=== PATIENT | female | born 1935 | race Caucasian/White ===

== ENCOUNTER 2019-01-28 19:27 | Emergency (ER) | payer MEDICARE, BC ==
[2019-01-28] MEDS ORDERED: Sodium Chloride 0.9% 2.5 ML Syringe FLUSH PRN (19:43)
[2019-01-28] MEDS ORDERED: Sodium Chloride 0.9% 10 ML Syringe FLUSH PRN (19:43)
--- NOTE | 2019-01-28 19:45 | EDM.PDOC ---
ED HPI GENERAL MEDICAL PROBLEM - General Chief Complaint: Cardiovascular Problem Stated Complaint: HIGH BP Time Seen by Provider: 01/28/19 19:35 - History of Present Illness INITIAL COMMENTS - FREE TEXT/NARRATIVE: HISTORY AND PHYSICAL: History of present illness: The patient is an 83-year-old female with a history of hypertension and hypothyroidism and hypercholesterolemia who follows with Dr. West at [facility] and presents with a 24-hour history of feeling lightheaded or dizzy and elevated blood pressure. She says she takes her blood pressure every evening and usually a number that is good for her is 120 to 130/80-90. A few months ago she was taken off the metoprolol she had been taking for a while and was placed on amlodipine and says she has been doing well with that. She has been struggling with left sciatica for the last 6 or so weeks and that is not new or different today so she has been doing activities more slowly than usual because of that. She says that she did not have a good day yesterday with her sciatica but she had no other symptomatology and today she said that she felt very woozy and not quite in her head and lightheaded but she did not pass out or black out and has no head neck or back pain that is new or different no chest pain or shortness of breath no nausea vomiting or abdominal complaints no fevers or chills or upper respiratory symptoms. She was concerned that her blood pressure was elevated which is why she was having the symptoms and took her blood pressure home and it was 160/105. She tells me that she ran out of her blood pressure medication yesterday so she has not had at least 2 doses of it and she is concerned that that is triggering this as well. She was concerned and came here for evaluation. As a says she is having no systemic complaints whatsoever and is eating and drinking normally. The discomfort and sciatica she is having on the left side is not new or different today. She is having normal urine output and no bowel or bladder disturbances. She's had no trauma. Please note that there was some confusion regarding this patient's medications for blood pressure. She gets them from mail order and the [facility] told me that she is on lisinopril 20 mg and she got a prescription for this just last month in December. He does not have any record of her taking the amlodipine or the metoprolol recently. The patient had showed me a list but did not have lisinopril on it but now tells me that she was started on this last month and she is awaiting a mail order of the medication and did run out of it. She also tells me now that she is not taking the amlodipine although her med list she showed me did show it on there. She says that she was taken off of that and now only takes the lisinopril 20 mg every night Review of systems: As per history of present illness and below otherwise all systems reviewed and negative. Past medical history: As per history of present illness and as reviewed below otherwise noncontributory. Surgical history: As per history of present illness and as reviewed below otherwise noncontributory. Social history: No reported history of drug or alcohol abuse. Family history: As per history of present illness and as reviewed below otherwise noncontributory. Physical exam: General: Well-developed well-nourished female who is nontoxic and speaking clearly and easily in the ED. She is interactive and vital signs are noted by me HEENT: Atraumatic, normocephalic, pupils reactive, negative for conjunctival pallor or scleral icterus, mucous membranes moist, throat clear, neck supple, nontender, trachea midline. Lungs: Clear to auscultation, breath sounds equal bilaterally, chest nontender. Heart: S1S2, regular rate and rhythm no overt murmurs Abdomen: Soft, nondistended, nontender. Negative for masses or hepatosplenomegaly. Negative for costovertebral tenderness. Pelvis: Stable nontender. Genitourinary: Deferred. Rectal: Deferred. Extremities: Atraumatic, negative for cords or calf pain. Neurovascular unremarkable. No pedal edema or leg asymmetry Neuro: Awake, alert, oriented. Cranial nerves II through XII unremarkable. Cerebellum unremarkable. Motor and sensory unremarkable throughout but the patient does have discomfort and difficulty raising her left leg due to her sciatic pain which she said is not new.. Exam nonfocal. Diagnostics: EKG CBC CMP INR troponin UA with reflex chest x-ray CT scan of the head Therapeutics: IV O2 monitor, potassium by mouth, lisinopril 20 mg Blood pressure is 167/87 without any intervention and I am currently awaiting the testing results. Potassium is low at 2.6 so I will give some oral potassium here in the ED. With trying to swallow the potassium pill, which is quite large, the patient did have an episode in the ED workup stuck in the back of her throat secondary to the size of the pill and the dryness of her mouth. She was coughing and speaking and she was assisted by nursing and me and was able to mobilize it and re-swallow it. There were no complications and the patient is doing well. I will give her the second 20 mEq in liquid form I discussed testing results with the patient and family at bedside and as she is awaiting a mail order of the lisinopril I will give her a dose here in the emergency department and a prescription for 5 tablets in case there is a delay getting these meds. I will also write for some potassium elixir that she can take tomorrow and I have advised her on dietary changes. She says she feels comfortable with discharge home. I confirmed the lisinopril dosing with [facility] and the patient also confirms that in the room. Repeat blood pressure is now 157/83 Impression: Elevated blood pressure, off medication, lightheadedness resolved stable Mild hypokalemia Definitive disposition and diagnosis as appropriate pending reevaluation and review of above. - Related Data Allergies Allergy/AdvReac Type Severity Reaction Status Date / Time No Known Allergies Allergy Verified 01/28/19 19:31 Home Meds: Home Meds Ascorbic Acid/Multivit-Min [Emergen-C 1,000 mg Packet] 1,000 mg PO 01/28/19 [ History] Aspirin 81 mg PO DAILY 01/28/19 [History] B12/Levomefolate Calcium/B-6 [Folbic Rf Tablet] 1 each PO 01/28/19 [History] D3/Folic Acid/Collagen,Hydroly [Cyfolex Capsule] 1 each PO 01/28/19 [History] FLUoxetine [PROzac] 10 mg PO DAILY 01/28/19 [History] Lisinopril [Prinivil] 20 mg PO DAILY 01/28/19 [History] Lovastatin 01/28/19 [History] Lutein 6 mg PO ASDIRECTED 01/28/19 [History] Magnesium Amino Acid Chelate [Magnesium] 100 mg PO ASDIRECTED 01/28/19 [History] Omeprazole 20 mg PO ASDIRECTED 01/28/19 [History] Pramipexole [Mirapex] 0.125 mg PO BID 01/28/19 [History] Past Medical History Cardiovascular History: Reports: Hypertension - Infectious Disease History Infectious Disease History: Reports: Chicken Pox, Measles, Mumps Social & Family History - Family History Family Medical History: Noncontributory - Tobacco Use Smoking Status *Q: Never Smoker Second Hand Smoke Exposure: No - Caffeine Use Caffeine Use: Reports: Coffee - Recreational Drug Use Recreational Drug Use: No ED ROS GENERAL - Review of Systems Review Of Systems: Comprehensive ROS is negative, except as noted in HPI. ED EXAM, GENERAL - Physical Exam Exam: See Below (See dictation) Course - Vital Signs Last Recorded V/S: Last Vital Signs Temp 36.4 C 01/28/19 19:32 Pulse 81 01/28/19 20:08 Resp 19 01/28/19 20:08 BP 167/87 H 01/28/19 20:08 Pulse Ox 96 01/28/19 20:08 - Orders/Labs/Meds Orders: Active Orders 24 hr Category Date Time Status Cardiac Monitoring [RC] . DIRECTED Care 01/28/19 19:43 Active EKG Documentation Completion [RC] STAT Care 01/28/19 19:43 Active Oxygen Therapy, ED [RC] ASDIRECTED Care 01/28/19 19:43 Active Pulse Oximetry [RC] ASDIRECTED Care 01/28/19 19:43 Active CULTURE URINE [RM] Stat Lab 01/28/19 20:29 Received Sodium Chloride 0.9% [Saline Flush] Med 01/28/19 19:43 Active 10 ml FLUSH ASDIRECTED PRN Sodium Chloride 0.9% [Saline Flush] Med 01/28/19 19:43 Active 2.5 ml FLUSH ASDIRECTED PRN Saline Lock Insert [OM.PC] Stat Oth 01/28/19 19:43 Ordered Medication Orders Sodium Chloride (Saline Flush) 10 ml FLUSH ASDIRECTED PRN PRN Reason: Keep Vein Open Sodium Chloride (Saline Flush) 2.5 ml FLUSH ASDIRECTED PRN PRN Reason: Keep Vein Open Labs: Laboratory Tests 01/28/19 01/28/19 01/28/19 Range/Units 19:35 19:35 19:35 WBC 10.75 (4.0-11.0) K/uL RBC 4.05 L (4.30-5.90) M/uL Hgb 12.3 (12.0-16.0) g/dL Hct 36.4 (36.0-46.0) % MCV 89.9 (80.0-98.0) fL MCH 30.4 (27.0-32.0) pg MCHC 33.8 (31.0-37.0) g/dL RDW Std Deviation 46.2 (28.0-62.0) fl RDW Coeff of Evita 14 (11.0-15.0) % Plt Count 408 H (150-400) K/uL MPV 8.80 (7.40-12.00) fL Neut % (Auto) 62.7 (48.0-80.0) % Lymph % (Auto) 26.6 (16.0-40.0) % [place] % (Auto) 8.3 (0.0-15.0) % Eos % (Auto) 2.0 (0.0-7.0) % Baso % (Auto) 0.4 (0.0-1.5) % Neut # (Auto) 6.8 H (1.4-5.7) K/uL Lymph # (Auto) 2.9 H (0.6-2.4) K/uL [place] # (Auto) 0.9 H (0.0-0.8) K/uL Eos # (Auto) 0.2 (0.0-0.7) K/uL Baso # (Auto) 0.0 (0.0-0.1) K/uL Nucleated RBC % 0.0 /100WBC Nucleated RBCs # 0 K/uL INR 1.05 Sodium 141 (136-145) mmol/L Potassium 2.6 L (3.5-5.1) mmol/L Chloride 106 (98-107) mmol/L Carbon Dioxide 23.9 (21.0-32.0) mmol/L BUN 7 (7.0-18.0) mg/dL Creatinine 0.8 (0.6-1.0) mg/dL Est Cr Clr Drug Dosing 40.91 mL/min Estimated GFR (MDRD) > 60.0 ml/min Glucose 111 H (74-106) mg/dL Calcium 9.0 (8.5-10.1) mg/dL Total Bilirubin 0.4 (0.2-1.0) mg/dL AST 25 (15-37) IU/L ALT 24 (14-63) IU/L Alkaline Phosphatase 143 H (46-116) U/L Troponin I < 0.050 (0.000-0.056) ng/mL Total Protein 6.8 (6.4-8.2) g/dL Albumin 3.7 (3.4-5.0) g/dL Globulin 3.1 (2.6-4.0) g/dL Albumin/Globulin Ratio 1.2 (0.9-1.6) Urine Color Urine Appearance Urine pH (5.0-8.0) Ur Specific [place] (1.001-1.035) Urine Protein (NEGATIVE) mg/dL Urine Glucose (UA) (NEGATIVE) mg/dL Urine Ketones (NEGATIVE) mg/dL Urine Occult Blood (NEGATIVE) Urine Nitrite (NEGATIVE) Urine Bilirubin (NEGATIVE) Urine Urobilinogen (<2.0) EU/dL Ur Leukocyte Esterase (NEGATIVE) Urine RBC (0-2/HPF) Urine WBC (0-5/HPF) Ur Epithelial Cells (NONE-FEW) Amorphous Sediment (NEGATIVE) Urine Bacteria (NEGATIVE) 01/28/19 Range/Units 20:29 WBC (4.0-11.0) K/uL RBC (4.30-5.90) M/uL Hgb (12.0-16.0) g/dL Hct (36.0-46.0) % MCV (80.0-98.0) fL MCH (27.0-32.0) pg MCHC (31.0-37.0) g/dL RDW Std Deviation (28.0-62.0) fl RDW Coeff of Evita (11.0-15.0) % Plt Count (150-400) K/uL MPV (7.40-12.00) fL Neut % (Auto) (48.0-80.0) % Lymph % (Auto) (16.0-40.0) % [place] % (Auto) (0.0-15.0) % Eos % (Auto) (0.0-7.0) % Baso % (Auto) (0.0-1.5) % Neut # (Auto) (1.4-5.7) K/uL Lymph # (Auto) (0.6-2.4) K/uL [place] # (Auto) (0.0-0.8) K/uL Eos # (Auto) (0.0-0.7) K/uL Baso # (Auto) (0.0-0.1) K/uL Nucleated RBC % /100WBC Nucleated RBCs # K/uL INR Sodium (136-145) mmol/L Potassium (3.5-5.1) mmol/L Chloride (98-107) mmol/L Carbon Dioxide (21.0-32.0) mmol/L BUN (7.0-18.0) mg/dL Creatinine (0.6-1.0) mg/dL Est Cr Clr Drug Dosing mL/min Estimated GFR (MDRD) ml/min Glucose (74-106) mg/dL Calcium (8.5-10.1) mg/dL Total Bilirubin (0.2-1.0) mg/dL AST (15-37) IU/L ALT (14-63) IU/L Alkaline Phosphatase (46-116) U/L Troponin I (0.000-0.056) ng/mL Total Protein (6.4-8.2) g/dL Albumin (3.4-5.0) g/dL Globulin (2.6-4.0) g/dL Albumin/Globulin Ratio (0.9-1.6) Urine Color YELLOW Urine Appearance SLT CLOUDY Urine pH 7.0 (5.0-8.0) Ur Specific [place] 1.010 (1.001-1.035) Urine Protein NEGATIVE (NEGATIVE) mg/dL Urine Glucose (UA) NEGATIVE (NEGATIVE) mg/dL Urine Ketones NEGATIVE (NEGATIVE) mg/dL Urine Occult Blood NEGATIVE (NEGATIVE) Urine Nitrite NEGATIVE (NEGATIVE) Urine Bilirubin NEGATIVE (NEGATIVE) Urine Urobilinogen 0.2 (<2.0) EU/dL Ur Leukocyte Esterase TRACE H (NEGATIVE) Urine RBC 0-1 (0-2/HPF) Urine WBC 1-3 (0-5/HPF) Ur Epithelial Cells OCCASIONAL (NONE-FEW) Amorphous Sediment HEAVY (NEGATIVE) Urine Bacteria RARE (NEGATIVE) Meds: Medications Generic Name Dose Route Start Last Admin Trade Name Freq PRN Reason Stop Dose Admin Sodium Chloride 10 ml 01/28/19 19:43 Saline Flush FLUSH ASDIRECTED PRN Keep Vein Open Sodium Chloride 2.5 ml 01/28/19 19:43 Saline Flush FLUSH ASDIRECTED PRN Keep Vein Open Discontinued Medications Generic Name Dose Route Start Last Admin Trade Name Jess PRN Reason Stop Dose Admin Lisinopril 20 mg 01/28/19 21:09 Prinivil PO 01/28/19 21:10 ONETIME ONE Potassium Chloride 40 meq 01/28/19 20:39 01/28/19 20:46 Klor-Con M20 PO 01/28/19 20:40 40 meq ONETIME ONE Administration Potassium Chloride 20 meq 01/28/19 20:52 01/28/19 21:01 Potassium Chloride Solution PO 01/28/19 20:53 20 meq ONETIME ONE Administration Potassium Chloride Confirm 01/28/19 20:55 01/28/19 21:02 Potassium Chloride Administered 01/28/19 20:56 Not Given Dose 40 meq .ROUTE .STK-MED ONE Departure - Departure Time of Disposition: 21:13 Disposition: Home, Self-Care 01 Reason for Transfer *Q: Primary PCI Indicated Condition: Good Clinical Impression: Hypokalemia, Lightheadedness Hypertension Qualifiers: Hypertension type: unspecified Qualified Code(s): I10 - Essential (primary) hypertension Referrals: Leticia West DO [Primary Care Provider] - Forms: ED Department Discharge Additional Instructions: The following information is given to patients seen in the emergency department who are being discharged to home. This information is to outline your options for follow-up care. We provide all patients seen in our emergency department with a follow-up referral. The need for follow-up, as well as the timing and circumstances, are variable depending upon the specifics of your emergency department visit. If you don't have a primary care physician on staff, we will provide you with a referral. We always advise you to contact your personal physician following an emergency department visit to inform them of the circumstance of the visit and for follow-up with them and/or the need for any referrals to a consulting specialist. The emergency department will also refer you to a specialist when appropriate. This referral assures that you have the opportunity for followup care with a specialist. All of these measure are taken in an effort to provide you with optimal care, which includes your followup. Under all circumstances we always encourage you to contact your private physician who remains a resource for coordinating your care. When calling for followup care, please make the office aware that this follow-up is from your recent emergency room visit. If for any reason you are refused follow-up, please contact the [facility] emergency department at and ask to speak to the emergency department charge nurse. [address] [place] [address] [facility] Primary care- Internal Medicine and Family [facility] [address] [place] [id number] Please eat foods that are rich in potassium for the next several days including bananas whole gr and vegetables. Please take medications as prescribed and connect with your provider in the clinic if you do not get your delivery of blood pressure medications. Do all movements slowly and return to ER as needed and as discussed - My Orders Last 24 Hours: My Active Orders 01/28/19 19:43 Cardiac Monitoring [RC] . DIRECTED EKG Documentation Completion [RC] STAT Oxygen Therapy, ED [RC] ASDIRECTED Pulse Oximetry [RC] ASDIRECTED Sodium Chloride 0.9% [Saline Flush] 10 ml FLUSH ASDIRECTED PRN Sodium Chloride 0.9% [Saline Flush] 2.5 ml FLUSH ASDIRECTED PRN Saline Lock Insert [OM.PC] Stat 01/28/19 20:29 CULTURE URINE [RM] Stat - Assessment/Plan Last 24 Hours: My Active Orders 01/28/19 19:43 Cardiac Monitoring [RC] . DIRECTED EKG Documentation Completion [RC] STAT Oxygen Therapy, ED [RC] ASDIRECTED Pulse Oximetry [RC] ASDIRECTED Sodium Chloride 0.9% [Saline Flush] 10 ml FLUSH ASDIRECTED PRN Sodium Chloride 0.9% [Saline Flush] 2.5 ml FLUSH ASDIRECTED PRN Saline Lock Insert [OM.PC] Stat 01/28/19 20:29 CULTURE URINE [RM] Stat
[2019-01-28 20:09] LABS: BLOOD UREA NITROGEN,BUN 7 mg/dL (7.0-18.0); CARBON DIOXIDE,CO2 23.9 mmol/L (21.0-32.0); CHLORIDE,CL 106 mmol/L (98-107); GLUCOSE RANDOM 111 mg/dL (74-106); POTASSIUM,K 2.6 mmol/L (3.5-5.1); SODIUM,NA 141 mmol/L (136-145)
--- NOTE | 2019-01-28 20:18 | CR ---
INDICATION: Chest pain. FINDINGS: A portable AP view of the chest was obtained. The cardiac silhouette and pulmonary vasculature are within normal limits. There is a calcified granuloma in the left upper lung. The lungs are clear acute infiltrates. There are atherosclerotic calcifications in the aorta. IMPRESSION: No evidence of acute pulmonary disease. Dictated by Phong Glynn MD @ 01/28/2019 8:16:23 PM Dictated by: Phong Glynn MD @ 01/28/2019 20:16:27 (Electronically Signed)
--- NOTE | 2019-01-28 20:22 | CT ---
INDICATIONS: Headache. TECHNIQUE: CT head without contrast. COMPARISON: None FINDINGS: Mild generalized volume loss. No mass effect, midline shift or hydrocephalus. No CT evidence of acute hemorrhage or infarction. No abnormal extra-axial fluid collection. Intracranial atherosclerosis. Bone windows show no acute osseous abnormality. Paranasal sinuses and orbits as imaged are unremarkable. IMPRESSION: No acute intracranial abnormality. Dictated by Jairo Marlow MD @ 01/28/2019 8:20:25 PM Dictated by: Jairo Marlow MD @ 01/28/2019 20:20:30 (Electronically Signed)
[2019-01-28] MEDS ORDERED: Potassium Chloride 20 MEQ Tab.ER PO ONE (20:39)
[2019-01-28] MEDS ORDERED: Potassium Chloride 10% 20 MEQ/15 ML Soln 15 ML UD Cup PO ONE (20:52)
[2019-01-28] MEDS ORDERED: Potassium Chloride 10% 20 MEQ/15 ML Soln 30 ML UD Cup ONE (20:55)
[2019-01-28] MEDS ORDERED: Lisinopril 10 MG Tab PO ONE (21:09)
== END 2019-01-28 21:36 | disposition home or self-care (01) ==
LOC: MW.ED 19:27
DX: E87.6 Hypokalemia (principal); I10 Essential (primary) hypertension; R42 Dizziness and giddiness; Z79.82 Long term (current) use of aspirin; Z79.899 Other long term (current) drug therapy
CPT/HCPCS: 70450; 71045; 80053; 81001; 84484; 85025; 85610; 87086; 93005; 99284; A9270; 99283

== ENCOUNTER 2019-05-19 07:44 | Emergency (ER) | payer MEDICARE, BC ==
--- NOTE | 2019-05-19 08:42 | CR ---
Left hand: 3 views left hand were obtained. Comparison: No prior hand exam is available. Soft tissue swelling is identified. Joint space narrowing scattered within the MCP, DIP and PIP joints as well as off the distal navicular bone and within the CMC joint of the thumb. Bony structures are slightly osteopenic. No discrete fracture, dislocation or other bony abnormality is identified. Impression: 1. Diffuse degenerative change as described above. 2. Soft tissue swelling. 3. No acute bony abnormality is appreciated. Diagnostic code #3 Study was dictated in [place] Standard Time
--- NOTE | 2019-05-19 08:43 | CR ---
Addendum: The impression on previous left wrist report "states no acute knee abnormality is identified". This is obviously incorrect. Following is the correct statement for impression #2: 2. No acute bony abnormality is identified. --- Addendum1 above dictated on [05/22/2019 09:36] by [Robert Putnam Hilton J.] --- --- Addendum1 above signed on [05/22/2019 09:44] by [Robert Putnam Hilton J.] --- --- Original report below dictated on [05/19/2019 07:40] by [Robert Putnam, Pelon Simmons] --- --- Original report below signed on [05/19/2019 07:40] by [Robert Putnam, Pelon Simmons] --- Left wrist: 3 views of left wrist were obtained. Comparison: No prior wrist study. Joint space narrowing is noted off the distal navicular bone. Joint space narrowing with small amount of bony debris and sclerosis is seen within the CMC joint of the thumb. Bony structures are osteopenic. Soft tissue swelling is noted within the posterior hand. Mild soft tissue swelling around the wrist is noted. No acute fracture, dislocation or other bony abnormality is seen. Impression: 1. Soft tissue swelling. Degenerative change and osteopenia. 2. No acute knee abnormality is identified. Diagnostic code #3 Study was dictated in [place] Standard Time --- Addendum1 signed ---
--- NOTE | 2019-05-19 08:57 | EDM.PDOC ---
ED HPI GENERAL MEDICAL PROBLEM - General Chief Complaint: Upper Extremity Injury/Pain Stated Complaint: FELL YESTERDAY, INJURED LT HAND Time Seen by Provider: 05/19/19 07:45 - History of Present Illness INITIAL COMMENTS - FREE TEXT/NARRATIVE: HPI 83-year-old female presents for evaluation of swelling and bruising of her left hand after a mechanical fall from standing height yesterday in which she caught herself with her left hand. Notes swelling with mild generalized discomfort on all movements of the hand, no focal tenderness palpation. Patient presented for evaluation due to insistence of her daughter. Notes normal sensation in her left him. Denies further injuries. ROS with no recent constitutional symptoms. Exam HR 80, BP 149/77, T 36.6C, SaO2 97% on room air. Gen: Pleasant, nontoxic-appearing, resting comfortably. HEENT: NC, AT, PEERL, EOMI. Resp: Unlabored respirations with a normal work of breathing. Card: Extremities warm and well perfused. GI: Non-distended. : Deferred MSK: Left forearm, wrist, and hand with deep red to purple ecchymosis from proximally 8 cm proximal to the wrist and extending through the entirety the hand and fingers, there is minimal tenderness palpation, no focal fluctuance, there is no crepitus, warmth is normal to the unaffected skin, muscle compartments are soft and nontender to palpation, no further palpable abnormalities. Full functional range of motion. 2+ radial pulse. 5/5 wrist flexion and extension, no anatomic snuff box tenderness to palpation. Left hand with sensation grossly intact to touch on the first dorsal web space. Aside from previously mentioned ecchymosis, the fingers are visually normal, no palpable abnormalities.5/5 finger flexion, extension abduction, and adduction on all fingers as well as 5/5 opposition of the thumb; no malrotation. Sensation intact to touch on the palmar surfaces of all fingers. All fingers warm and well perfused with brisk capillary refill. Neuro: alert and oriented 3, no facial asymmetry, vision and hearing WNL. Heme/Lymph: Deferred Skin: Normal color with no visible lesions (other than noted above). Psych: Mood and affect appropriate. Imaging: XR L Hand: diffuse degenerative changes. Soft tissue swelling. No acute bony abnormalities appreciated. XR L Wrist: soft tissue swelling. Degenerative changes in osteopenia. No acute traumatic abnormality is identified. MDM Previous chart, nursing note, and vitals reviewed. A: 83-year-old female presents for evaluation of swelling and bruising of her left hand after a mechanical fall from standing height yesterday in which she caught herself with her left hand. DDx & Evaluation: patient with diffuse ecchymosis, no clear evidence of cellulitis (absence of warmth, clinical trajectory, absence of clinically appreciable tenderness), CMS intact, imaging without evidence of fracture. Impression: fall, contusion. Left Hand Pain Score (Numeric/FACES): 6 - Related Data Allergies Allergy/AdvReac Type Severity Reaction Status Date / Time No Known Allergies Allergy Verified 05/19/19 08:00 Home Meds: Home Meds Ascorbic Acid/Multivit-Min [Emergen-C 1,000 mg Packet] 1,000 mg PO DAILY [History] Aspirin 81 mg PO DAILY 01/28/19 [History] B12/Levomefolate Calcium/B-6 [Folbic Rf Tablet] 1 each PO DAILY 01/28/19 [ History] D3/Folic Acid/Collagen,Hydroly [Cyfolex Capsule] 1 each PO DAILY 01/28/19 [ History] FLUoxetine [PROzac] 10 mg PO DAILY 01/28/19 [History] Lovastatin 20 mg PO DAILY 01/28/19 [History] Lutein 6 mg PO ASDIRECTED 01/28/19 [History] Magnesium Amino Acid Chelate [Magnesium] 100 mg PO ASDIRECTED 01/28/19 [History] Omeprazole 20 mg PO ASDIRECTED 01/28/19 [History] Pramipexole [Mirapex] 0.125 mg PO BID 01/28/19 [History] lisinopriL [Prinivil] 20 mg PO DAILY 01/28/19 [History] Past Medical History Cardiovascular History: Reports: Hypertension - Infectious Disease History Infectious Disease History: Reports: None Social & Family History - Family History Family Medical History: Noncontributory - Tobacco Use Smoking Status *Q: Former Smoker Used Tobacco, but Quit: Yes Month/Year Tobacco Last Used: 1969 - Caffeine Use Caffeine Use: Reports: None - Recreational Drug Use Recreational Drug Use: No Review of Systems - Review of Systems Review Of Systems: See Below ED EXAM, GENERAL - Physical Exam Exam: See Below Course - Vital Signs Last Recorded V/S: Last Vital Signs Temp 36.3 C 05/19/19 08:02 Pulse 80 05/19/19 08:02 Resp 17 05/19/19 08:02 BP 149/77 H 05/19/19 08:02 Pulse Ox 97 05/19/19 08:02 Departure - Departure Time of Disposition: 08:56 Disposition: Home, Self-Care 01 Clinical Impression: Fall, Contusion - Discharge Information Referrals: Leticia West DO [Primary Care Provider] - Additional Instructions: You were in seen in the [facility] Emergency Department for evaluation of injuries to her left hand and wrist after a fall. Your found have bruising without evidence of further abnormalities. You may use ibuprofen and acetaminophen as directed below for treatment of discomfort. Please read and follow all of the instructions below. Please follow up with your primary care physician as needed. When calling for follow-up care, please make the office aware that this follow-up is from your recent emergency room visit. If for any reason you are refused follow-up, please contact the [facility] Emergency Department at and asked to speak to the emergency department charge nurse. Your care today was limited to identifying and treating emergent medical problems only. Many people have subtle differences in their test results that require follow up with their outpatient physician(s) to correctly determine if this represents a normal variation or concerning abnormality with respect to your specific health. The care given to you today was limited to identifying and treating emergent medical problems - you need to request a copy of all of your medical records from today's visit and follow up with your outpatient physician(s) to review both today's visit and your overall health. If you have any new symptoms or if you are at all concerned about your health please return immediately to the emergency department. Ibuprofen (Brand Names: Motrin, Advil) Take 400 mg with a glass of water every 6 to 8 hours as needed for pain or fever. Do not take for more than 10 days. This medication may cause a mildly upset stomach, if so take it with a small snack. Stop taking it if you have persistent abdominal pain, heartburn, or any stomach pain. Do not take this medication if you have known ulcers. Do not take with Naproxen Sodium (brand name: Aleve) or other non-steroidal antiiflammatory medications that you may be prescribed (e.g. Diclofenac, Etodolac, Indomethicin) WARNING: This drug may infrequently cause serious (rarely fatal) bleeding from the stomach or intestines. Also, related drugs rarely have caused blood clots to form, resulting in heart attacks and strokes. This medication might also rarely cause similar problems. Talk to your doctor or pharmacist about the benefits and risks of treatment, as well as other possible medication choices. If you notice any of the following rare but very serious side effects, stop taking ibuprofen and seek immediate medical attention: black stools, persistent stomach/abdominal pain, vomit that looks like coffee grounds, chest pain, weakness on one side of the body, sudden vision changes, slurred speech. SIDE EFFECTS: Upset stomach, nausea, vomiting, heartburn, headache, diarrhea, constipation, drowsiness, and dizziness may occur. If any of these effects persist or worsen, notify your doctor or pharmacist promptly. If your doctor has directed you to use this medication, remember that he or she has judged that the benefit to you is greater than the risk of side effects. Many people using this medication do not have serious side effects. Tell your doctor immediately if any of these serious side effects occur: stomach pain, swelling of the hands or feet, sudden or unexplained weight gain, ringing in the ears ( tinnitus). Tell your doctor immediately if any of these unlikely but serious side effects occur: vision changes, rapid or pounding heartbeat, easy bruising or bleeding, difficult/painful swallowing. Tell your doctor immediately if any of these highly unlikely but very serious side effects occur: change in amount of urine, severe headache, very stiff neck, mental/mood changes, persistent sore throat or fever. This drug may rarely cause serious (possibly fatal) liver disease. If you notice any of the following highly unlikely but very serious side effects, stop taking ibuprofen and consult your doctor or pharmacist immediately: yellowing eyes and skin, dark urine, unusual/extreme tiredness. An allergic reaction to this drug is unlikely, but seek immediate medical attention if it occurs. Symptoms of an allergic reaction include: rash, itching/ swelling (especially of the face/tongue/throat), severe dizziness, trouble breathing. This is not a complete list of possible side effects. DRUG INTERACTIONS: Your healthcare professionals (e.g., doctor or pharmacist) may already be aware of any possible drug interactions and may be monitoring you for it. Do not start, stop or change the dosage of any medicine before checking with them first. This drug should not be used with the following medications because very serious interactions may occur: cidofovir, ketorolac. If you are currently using any of these medications listed above, tell your doctor or pharmacist before starting ibuprofen. Before using this medication, tell your doctor or pharmacist of all prescription and nonprescription/herbal products you may use, especially of: anti-platelet drugs (e.g., cilostazol, clopidogrel), oral bisphosphonates (e.g., alendronate), other medications for arthritis (e.g., aspirin, methotrexate), "blood thinners" (e.g., enoxaparin, heparin, warfarin), corticosteroids (e.g., prednisone), cyclosporine, desmopressin, high blood pressure drugs (including ERIK inhibitors such as captopril, angiotensin II receptor antagonists such as losartan, and beta- blockers such as metoprolol), lithium, pemetrexed, "water pills" (diuretics such as furosemide, hydrochlorothiazide, triamterene). Check all prescription and nonprescription medicine labels carefully for other pain/fever drugs ( NSAIDs such as aspirin, celecoxib, naproxen). These drugs are similar to ibuprofen, so taking one of these drugs while also taking ibuprofen may increase your risk of side effects. Consult your doctor or pharmacist for more details. However, if your doctor has prescribed low doses of aspirin to prevent heart attack or stroke (usually at dosages of 81-325 milligrams a day), you should continue to take the aspirin. Daily use of ibuprofen may decrease aspirin 's ability to prevent heart attack/stroke. Talk to your doctor about using a different medication (e.g., acetaminophen) to treat pain/fever. If you must take ibuprofen, talk to your doctor about possibly taking immediate-release aspirin (not enteric-coated) while also taking the ibuprofen dose apart from your aspirin dose. Do not increase your daily dose of aspirin or change the way you take aspirin/other medications without your doctor's approval. This document does not contain all possible interactions. Therefore, before using this product, tell your doctor or pharmacist of all the products you use. Keep a list of all your medications with you, and share the list with your doctor and pharmacist. Acetaminophen (Tylenol) Please take 1,000 mg every 6 hours as needed for pain. Do no use with alcohol or other acetaminophen containing medications. SIDE EFFECTS: This drug usually has no side effects. If you do not have liver problems, the maximum dose of acetaminophen for adults is 4 grams per day (4000 milligrams). Taking more than the maximum daily amount may cause serious ( possibly fatal) liver damage. Get medical help right away if you have any of the following symptoms of liver damage: persistent nausea/vomiting, extreme tiredness, stomach/abdominal pain, yellowing eyes/skin, dark urine. If you have liver problems, consult your doctor or pharmacist for a safe dosage of this medication. A very serious allergic reaction to this drug is rare. However, get medical help right away if you notice any symptoms of a serious allergic reaction, including: rash, itching/swelling (especially of the face/tongue/ throat), severe dizziness, trouble breathing. This is not a complete list of possible side effects. If you notice other effects not listed above, contact your doctor or pharmacist. Prescriptions: If you are uninsured or have financial difficulties with filling your prescription(s), you may consider using a free pharmacy discount service such as [employer] (Magisto) or [employer] ([employer]). These services allow you to search for a medication on your phone (or computer) and obtain a coupon that usually has a significant discount from the list turk at a pharmacy. Your physician as well as [facility] does not have a financial relationship with either of these services. You may also wish to speak with your physician to determine if lower cost prescriptions are possible. Obtaining primary care: 1. [facility] provides pediatrics (children), family medicine (children, adults, and some obstetrical care), and internal medicine (adults). Further specialty care is also available. Same day appointments are available. They may be contacted at [phone] and are open Wednesday through Wednesday 8 AM to [address] [facility] are located at [facility], [address] [place] [address]. 2. [facility] offers family medicine, internal medicine, [facility] health, and further specialty care. [facility] may be contacted at [phone]. [facility] is located at [address] [place], [address]. 3. If you have health insurance, please also contact your insurer for a list of accepting providers under your policy, you may contact these providers for further health care. Occupational health: Work related injuries may consider following up with [facility], . Occupational health services are located at [address] [place] [address] and are open Wednesday through Wednesday from 7: 30 am to 5:00 pm. Obstetrical and Gynecological Care: [facility], , Wednesday through Wednesday 8 AM to 5 PM. [address] [address]. Eyecare: If you have an eye injury you should follow up with your factory superintendent or with [facility], at [phone] or [phone] , they are located at [address] [place] [address]. [facility] Jimi Gotti DDS. [address] [place], [place]. Ph. [phone] Nate Gotti DDS MS. [address] [facility] [address], [place], [place]. Ph. Harish Arroyo DDS. [address] [place] [address]. Ph. [phone] Volodymyr Ga DDS. [address] [facility] 4 [place], [place]. Ph. [phone] Andriy Welhc DDS PC. [address] [facility] [address] [place], [place]. Ph. [phone] Amaris Piedra DDS. [address] [facility]. Ph. [phone] [facility]. [address] [place], [place]. Ph. [phone] [facility] [place]. [address], [place], [place]. Ph. [phone] [facility] [address] [place] [address]. Ph. [facility]. [address] [place] [address] [address] [place]. Ph. [phone] [facility]. [address] [place] [address], Genevieve MD. Ph. [phone] Sepsis Event Note - Evaluation Sepsis Screening Result: No Definite Risk - Focused Exam Vital Signs: Vital Signs Temp Pulse Resp BP Pulse Ox 05/19/19 08:02 36.3 C 80 17 149/77 H 97 Date Exam was Performed: 05/19/19 Time Exam was Performed: 08:56
== END 2019-05-19 09:51 | disposition home or self-care (01) ==
LOC: MW.ED 07:44
DX: S60.222A Contusion of left hand, initial encounter (principal); S60.212A Contusion of left wrist, initial encounter; S60.032A Contusion of left middle finger without damage to nail, initial encounter; S60.052A Contusion of left little finger without damage to nail, initial encounter; S60.042A Contusion of left ring finger without damage to nail, initial encounter; S60.012A Contusion of left thumb without damage to nail, initial encounter; S60.022A Contusion of left index finger without damage to nail, initial encounter; I10 Essential (primary) hypertension; Z79.899 Other long term (current) drug therapy; Z87.891 Personal history of nicotine dependence; W18.30XA Fall on same level, unspecified, initial encounter
CPT/HCPCS: 73110-26-LT; 73110-LT; 73130-26-LT; 73130-LT; 99283